=== PATIENT | male | born 1930 | race Caucasian/White ===

== ENCOUNTER 2016-06-23 00:24 | Inpatient (IN) | payer OTHER ==
[~2016-06-23] VITALS: Ht 170.2 cm; Wt 109.9 kg
[2016-06-23] VITALS (10 sets, daily range): BP systolic 133–161; BP diastolic 58–81
[~2016-06-23 00:24] MED LIST: Coumadin dosing per PO; FLAGYL500 MG PO; LOPRESSOR12.5 MG PO; Lotrel 5/40 PO; SENOKOT S,PE1 TABLET PO; Tylenol Regular Stre PO; Vicodin,Lortab 5/500 PO
[2016-06-23 01:56] LABS: HEMATOCRIT 29.4 % (38.0-50.0); MCH 25.9 PG (29.0-34.0); MCHC 30.3 G/DL (30.0-36.0); MCV 85.5 FL (86-99); MEAN PLAT.VOLUME 10.3 uM^3 (9.0-12.4); PLATELET COUNT 208 K/uL (156-360); RBC DIS.WIDTH-CV 17.4 % (11.8-14.6); RBC DIS.WIDTH-SD 53.1 % (39-53); RED BLOOD COUNT 3.44 M/uL (4.00-5.50); WHITE BLOOD COUNT 9.4 K/uL (4.1-10.2)
[2016-06-23 02:05] LABS: CHLORIDE 112 mEq/L (99-109); POTASSIUM 4.9 mEq/L (3.7-5.4); SODIUM 143 mEq/L (136-147)
[2016-06-23 02:07] LABS: GLUCOSE 114 mg/dL (70-99)
[2016-06-23 02:08] LABS: ANION GAP 11 MEQ/L (2-14)
[2016-06-23 02:09] LABS: TOTAL BILIRUBIN 0.3 mg/dL (0.0-1.0)
[2016-06-23 02:11] LABS: ALKALINE PHOSPHATASE 76 IU/L (3-129); GFR ESTIMATE (CALCULATED) 27 mL/min/
[2016-06-23 02:12] LABS: UREA NITROGEN (BUN) 45 mg/dL (9-23)
[2016-06-23 02:13] LABS: DIRECT BILIRUBIN 0.1 mg/dL (0.0-0.3)
[2016-06-23 02:14] LABS: LIPASE 12 U/L (1.0-51.0)
[2016-06-23 02:17] LABS: TROP-I INTERPRETATION INDETERMINATE; TROPONIN-I 0.44 ng/mL (0.0-0.30)
[2016-06-23 02:44] LABS: ADD MIUA? YES; BILIRUBIN NEGATIVE; BLOOD TRACE; COLOR YELLOW ((YELLOW)); GLUCOSE (STRIP) NEGATIVE; KETONES NEGATIVE; LEUKOCYTES NEGATIVE; NITRITE NEGATIVE; PH, URINE 5.5 (5-8); PROTEIN (STRIP) >=300; SPECIFIC GRAVITY 1.019 (1.000-1.030); UROBILINOGEN 0.2 MG/DL (0.2-1.0)
[2016-06-23 02:58] LABS: EPITHELIAL CELLS RARE; MUCUS NONE SEEN; RED BLOOD CELLS 0-5 /HPF (0-5)
[2016-06-23 02:59] LABS: BACTERIA RARE; CASTS NONE SEEN /LPF; CRYSTALS NONE SEEN; UCUL ADDED? NO
[2016-06-23] MEDS ORDERED: FUROSEMIDE40 MG PO (05:48)
[2016-06-23] MEDS ORDERED: AMLODIPINE BESYL5 MG PO (05:48)
[2016-06-23 06:46] LABS: TROP-I INTERPRETATION INDETERMINATE; TROPONIN-I 0.42 ng/mL (0.0-0.30)
[2016-06-23] MEDS ORDERED: LOW DOSE ASPIRI81 M1 PO (08:09)
[2016-06-23] MEDS ORDERED: TYLENOL ARTHRI650 MG PO (08:10)
[2016-06-23 12:25] LABS: HEMATOCRIT 30.3 % (38.0-50.0); MCV 86.3 FL (86-99)
[2016-06-23 13:07] LABS: BASE EXCESS -0.4 mEq/L (-3 to +3); BICARBONATE 25.8 mEq/L (22-26); CARBOXY HGB 1.3 % (0-5); PCO2 49 mm Hg (35-45); PO2 86 mm Hg (80-100); SITE LR; pH 7.33 (7.35-7.45)
[2016-06-23 13:08] LABS: COMMENTS - BLOOD GASES NAC+; DEVICE CANNULA; O2 FLOW 2 L/MIN
[2016-06-23 13:10] LABS: TROP-I INTERPRETATION INDETERMINATE; TROPONIN-I 0.35 ng/mL (0.0-0.30)
[2016-06-23 14:00] LABS: METH RESISTANT S AUREUS PCR NEGATIVE (NEGATIVE); PROBE CHECK PASS; SPECIMEN PROCESSING CONTROL PASS
[2016-06-23 18:54] LABS: TROP-I INTERPRETATION NEGATIVE; TROPONIN-I 0.26 ng/mL (0.0-0.30)
[2016-06-24] VITALS: BP 114/43
[2016-06-24 04:00] VITALS: BP 139/59
[2016-06-24 06:16] LABS: HEMATOCRIT 30.5 % (38.0-50.0); MCH 25.6 PG (29.0-34.0); MCHC 29.5 G/DL (30.0-36.0); MCV 86.6 FL (86-99); MEAN PLAT.VOLUME 11.1 uM^3 (9.0-12.4); PLATELET COUNT 224 K/uL (156-360); RBC DIS.WIDTH-CV 17.7 % (11.8-14.6); RBC DIS.WIDTH-SD 55.5 % (39-53); RED BLOOD COUNT 3.52 M/uL (4.00-5.50); WHITE BLOOD COUNT 11.1 K/uL (4.1-10.2)
[2016-06-24 06:45] LABS: ANION GAP 11 MEQ/L (2-14); CHLORIDE 105 MEQ/L (99-109); GFR ESTIMATE (CALCULATED) 23 mL/min/; GLUCOSE 111 mg/dL (70-99); SAMPLE HEMOLYSIS CHECK 0; SAMPLE ICTERIC CHECK 0; SAMPLE LIPEMIA CHECK 0; SODIUM 139 MEQ/L (136-147); UREA NITROGEN (BUN) 61 mg/dL (9-23)
[2016-06-24 08:00] VITALS: BP 143/60
[2016-06-24 12:00] VITALS: BP 103/57
[2016-06-24 13:11] LABS: ANION GAP 11 MEQ/L (2-14); CHLORIDE 105 MEQ/L (99-109); GFR ESTIMATE (CALCULATED) 23 mL/min/; GLUCOSE 100 mg/dL (70-99); POTASSIUM 5.8 MEQ/L (3.7-5.4); SAMPLE HEMOLYSIS CHECK 0; SAMPLE ICTERIC CHECK 0; SAMPLE LIPEMIA CHECK 0; SODIUM 139 MEQ/L (136-147); UREA NITROGEN (BUN) 64 mg/dL (9-23)
[2016-06-24 16:30] VITALS: BP 139/55
[2016-06-24 17:13] LABS: UR CREATININE CONCENTRATION 90.2 MG/DL
[2016-06-24 20:00] VITALS: BP 184/93
[2016-06-25] VITALS (10 sets, daily range): BP systolic 114–168; BP diastolic 47–83
[2016-06-25 06:30] LABS: HEMATOCRIT 31.2 % (38.0-50.0); MCH 25.6 PG (29.0-34.0); MCHC 29.8 G/DL (30.0-36.0); MEAN PLAT.VOLUME 10.8 uM^3 (9.0-12.4); PLATELET COUNT 226 K/uL (156-360); RBC DIS.WIDTH-CV 17.7 % (11.8-14.6); RBC DIS.WIDTH-SD 55.6 % (39-53); RED BLOOD COUNT 3.63 M/uL (4.00-5.50); WHITE BLOOD COUNT 12.1 K/uL (4.1-10.2)
[2016-06-25 06:55] LABS: ANION GAP 11 MEQ/L (2-14); CHLORIDE 104 MEQ/L (99-109); GFR ESTIMATE (CALCULATED) 22 mL/min/; GLUCOSE 105 mg/dL (70-99); POTASSIUM 5.5 MEQ/L (3.7-5.4); SAMPLE HEMOLYSIS CHECK 0; SAMPLE ICTERIC CHECK 0; SAMPLE LIPEMIA CHECK 0; SODIUM 139 MEQ/L (136-147); UREA NITROGEN (BUN) 75 mg/dL (9-23); URIC ACID 10.8 mg/dL (3.1-9.2)
[2016-06-25 08:48] LABS: ABS NEUTROPHIL COUNT 9.42; ANISOCYTOSIS 1+; EOSINOPHIL (%) 0 % (0-5); IMMATURE GRANULOCYTE (%) 5.4 % (0.0-0.7); IMMATURE GRANULOCYTE COUNT 0.7 K/uL; LYMPHOCYTE COUNT 0.7 K/uL (1.0-2.8); MACROCYTES OCC; MONOCYTE (%) 7.1 % (3-12); MONOCYTE COUNT 0.9 K/uL (0-0.8); NEUTROPHIL (%) 81.3 % (45-76); NEUTROPHIL COUNT 9.8 K/uL (1.8-6.4); OVALOCYTES OCC; PLAT.SUFFICIENCY ADEQUATE; USER ID SDF
[2016-06-26 03:15] VITALS: BP 155/77
[2016-06-26 06:05] LABS: HEMATOCRIT 31.4 % (38.0-50.0); MCH 25.8 PG (29.0-34.0); MCHC 30.3 G/DL (30.0-36.0); MCV 85.3 FL (86-99); MEAN PLAT.VOLUME 10.4 uM^3 (9.0-12.4); PLATELET COUNT 209 K/uL (156-360); RBC DIS.WIDTH-CV 17.8 % (11.8-14.6); RBC DIS.WIDTH-SD 55.5 % (39-53); RED BLOOD COUNT 3.68 M/uL (4.00-5.50); WHITE BLOOD COUNT 9.2 K/uL (4.1-10.2)
[2016-06-26 06:47] LABS: ANION GAP 10 MEQ/L (2-14); CHLORIDE 108 MEQ/L (99-109); GFR ESTIMATE (CALCULATED) 25 mL/min/; GLUCOSE 93 mg/dL (70-99); POTASSIUM 4.6 MEQ/L (3.7-5.4); SAMPLE HEMOLYSIS CHECK 0; SAMPLE ICTERIC CHECK 0; SAMPLE LIPEMIA CHECK 0; SODIUM 143 MEQ/L (136-147); UREA NITROGEN (BUN) 74 mg/dL (9-23)
[2016-06-26 07:18] LABS: ABS NEUTROPHIL COUNT 6.33; ANISOCYTOSIS 1+; BASOPHIL COUNT 0.1 K/uL (0-0.1); EOSINOPHIL (%) 2.5 % (0-5); EOSINOPHIL ABS CT 0.18; EOSINOPHIL COUNT 0.2 K/uL (0-0.3); IMMATURE GRANULOCYTE (%) 9.4 % (0.0-0.7); IMMATURE GRANULOCYTE COUNT 0.9 K/uL; MACROCYTES OCC; MONOCYTE (%) 9.1 % (3-12); MONOCYTE COUNT 0.8 K/uL (0-0.8); NEUTROPHIL COUNT 6.2 K/uL (1.8-6.4); OVALOCYTES OCC; PLAT.SUFFICIENCY ADEQUATE; POLYCHROMASIA OCC; USER ID SDF
[2016-06-26 09:35] VITALS: BP 182/89
[2016-06-26 12:48] VITALS: BP 122/77
[2016-06-26 15:34] VITALS: BP 200/80
[2016-06-26 20:00] VITALS: BP 162/72
[2016-06-26 23:55] VITALS: BP 163/69
[2016-06-27] VITALS (8 sets, daily range): BP systolic 140–196; BP diastolic 64–82
[2016-06-27 12:04] LABS: MCH 25.9 PG (29.0-34.0); MCHC 30.3 G/DL (30.0-36.0); MCV 85.4 FL (86-99); MEAN PLAT.VOLUME 10.7 uM^3 (9.0-12.4); PLATELET COUNT 216 K/uL (156-360); RBC DIS.WIDTH-CV 17.9 % (11.8-14.6); RBC DIS.WIDTH-SD 55.5 % (39-53); RED BLOOD COUNT 3.63 M/uL (4.00-5.50); WHITE BLOOD COUNT 9.1 K/uL (4.1-10.2)
[2016-06-27 12:27] LABS: ALKALINE PHOSPHATASE 68 IU/L (3-129); ANION GAP 9 MEQ/L (2-14); CHLORIDE 109 MEQ/L (99-109); GLUCOSE 107 mg/dL (70-99); SAMPLE HEMOLYSIS CHECK 0; SAMPLE ICTERIC CHECK 0; SAMPLE LIPEMIA CHECK 0; SODIUM 146 MEQ/L (136-147); TOTAL BILIRUBIN 0.3 MG/DL (0.0-1.0); UREA NITROGEN (BUN) 59 mg/dL (9-23)
[2016-06-27 12:28] LABS: GFR ESTIMATE (CALCULATED) 32 mL/min/; POTASSIUM 3.6 MEQ/L (3.7-5.4)
[2016-06-28 04:53] VITALS: BP 138/66
[2016-06-28 07:14] VITALS: BP 142/65
[2016-06-28 07:20] LABS: ANION GAP 9 MEQ/L (2-14); CHLORIDE 109 MEQ/L (99-109); GFR ESTIMATE (CALCULATED) 32 mL/min/; GLUCOSE 94 mg/dL (70-99); POTASSIUM 3.6 MEQ/L (3.7-5.4); SAMPLE HEMOLYSIS CHECK 0; SAMPLE ICTERIC CHECK 0; SAMPLE LIPEMIA CHECK 0; SODIUM 147 MEQ/L (136-147); UREA NITROGEN (BUN) 51 mg/dL (9-23)
[2016-06-28] MEDS ORDERED: ATORVASTATIN CA40 MG PO (10:49)
[2016-06-28] MEDS ORDERED: NIFEDIPINE ER30 MG PO (10:50)
[2016-06-28] MEDS ORDERED: FUROSEMIDE20 MG PO (10:51)
[2016-06-28] MEDS ORDERED: LOPRESSOR25 MG PO (10:51)
[2016-06-28] MEDS ORDERED: ALLOPURINOL100 MG PO (10:51)
[2016-06-28] MEDS ORDERED: K-TAB ER8 MEQ PO (10:52)
== END 2016-06-28 12:57 | disposition home health service (06) | DRG 291 ==
LOC: EME → EDBD 00:24 → 4EAST 05:47 → 4WEST 05:47 → EDOF 05:47 → 4WEST 11:02 → 4EAST 06-25 20:07
PROVIDERS: Emergency Medicine; Hospitalist; Internal Medicine Critical Care Medicine; Internal Medicine Nephrology; Physician Assistant Medical
DX: I13.0 Hypertensive heart and chronic kidney disease with heart failure and stage 1 through stage 4 chronic kidney disease, or unspecified chronic kidney disease (principal); J96.02 Acute respiratory failure with hypercapnia; J96.01 Acute respiratory failure with hypoxia; I50.31 Acute diastolic (congestive) heart failure; J44.1 Chronic obstructive pulmonary disease with (acute) exacerbation; N17.9 Acute kidney failure, unspecified; N18.4 Chronic kidney disease, stage 4 (severe); Q61.3 Polycystic kidney, unspecified; E87.2 Acidosis; Z96.653 Presence of artificial knee joint, bilateral; Z96.642 Presence of left artificial hip joint; Z99.81 Dependence on supplemental oxygen; I27.2 Other secondary pulmonary hypertension; G47.33 Obstructive sleep apnea (adult) (pediatric); F03.90 Unspecified dementia, unspecified severity, without behavioral disturbance, psychotic disturbance, mood disturbance, and anxiety; I25.10 Atherosclerotic heart disease of native coronary artery without angina pectoris; Z87.891 Personal history of nicotine dependence; I08.1 Rheumatic disorders of both mitral and tricuspid valves; E87.5 Hyperkalemia; N43.3 Hydrocele, unspecified; E66.01 Morbid (severe) obesity due to excess calories; N40.0 Benign prostatic hyperplasia without lower urinary tract symptoms; D63.1 Anemia in chronic kidney disease; D50.9 Iron deficiency anemia, unspecified; R74.8 Abnormal levels of other serum enzymes
CPT/HCPCS: 36600; 71010; 76770; 80048; 80048 91; 80053; 80076; 81003; 82272; 82570; 82803; 83690; 83880; 84156; 84484; 84550; 85014; 85018; 85025; 85027; 86038; 86850; 86900; 86901; 87641; 93005; 93306; 93971; 94640; 94640 76; 94760; 94799; 97530 GO; 97530 GP; 99202; 99281; 99285; J1650; J1940; J2405; J2930; J7644

== ENCOUNTER 2016-07-15 19:08 | Inpatient (IN) | payer OTHER ==
[~2016-07-15] VITALS: Ht 172.7 cm; Wt 100.0 kg
[~2016-07-15 19:08] MED LIST changes: +ALLOPURINOL100 MG PO; +AMLODIPINE BESYL5 MG PO; +ATORVASTATIN CA40 MG PO; +FUROSEMIDE20 MG PO; +FUROSEMIDE40 MG PO; +K-TAB ER8 MEQ PO; +LOPRESSOR25 MG PO; +LOW DOSE ASPIRI81 M1 PO; +NIFEDIPINE ER30 MG PO; +TYLENOL ARTHRI650 MG PO
[2016-07-15 20:24] LABS: ADD MIUA? YES; BILIRUBIN NEGATIVE; BLOOD TRACE; COLOR YELLOW ((YELLOW)); GLUCOSE (STRIP) NEGATIVE; KETONES NEGATIVE; LEUKOCYTES TRACE; NITRITE NEGATIVE; PROTEIN (STRIP) 30; SPECIFIC GRAVITY 1.014 (1.000-1.030); UROBILINOGEN 0.2 MG/DL (0.2-1.0)
[2016-07-15 20:37] LABS: HEMATOCRIT 26.7 % (38.0-50.0); MCH 25.5 PG (29.0-34.0); MCHC 30.3 G/DL (30.0-36.0); MEAN PLAT.VOLUME 10.2 uM^3 (9.0-12.4); PLATELET COUNT 250 K/uL (156-360); RBC DIS.WIDTH-CV 17.4 % (11.8-14.6); RBC DIS.WIDTH-SD 52.1 % (39-53); RED BLOOD COUNT 3.18 M/uL (4.00-5.50); WHITE BLOOD COUNT 8.1 K/uL (4.1-10.2)
[2016-07-15 20:46] LABS: D-DIMER ELISA 0.95 mg/L FEU (< 0.57)
[2016-07-15 20:49] LABS: EPITHELIAL CELLS NONE SEEN; RED BLOOD CELLS 0-5 /HPF (0-5); WHITE BLOOD CELLS 0-5 /HPF (0-5)
[2016-07-15 20:50] LABS: BACTERIA NONE SEEN; CASTS NONE SEEN /LPF; CRYSTALS NONE SEEN; MUCUS NONE SEEN; UCUL ADDED? NO
[2016-07-15 20:55] LABS: CHLORIDE 105 mEq/L (99-109); POTASSIUM 4.9 mEq/L (3.7-5.4); SODIUM 141 mEq/L (136-147)
[2016-07-15 20:56] LABS: TROP-I INTERPRETATION NEGATIVE; TROPONIN-I 0.04 ng/mL (0.0-0.30)
[2016-07-15 20:57] LABS: GLUCOSE 98 mg/dL (70-99)
[2016-07-15 20:58] LABS: ANION GAP 13 MEQ/L (2-14)
[2016-07-15 20:59] LABS: TOTAL BILIRUBIN 0.2 mg/dL (0.0-1.0)
[2016-07-15 21:01] LABS: ALKALINE PHOSPHATASE 88 IU/L (3-129); GFR ESTIMATE (CALCULATED) 22 mL/min/
[2016-07-15 21:02] LABS: UREA NITROGEN (BUN) 65 mg/dL (9-23)
[2016-07-15 21:25] LABS: BASOPHIL COUNT 0.1 K/uL (0-0.1); EOSINOPHIL (%) 6.2 % (0-5); EOSINOPHIL COUNT 0.5 K/uL (0-0.3); HEMATOLOGY COMMENT 1 SMEAR COMPATIBLE; IMMATURE GRANULOCYTE (%) 3.9 % (0.0-0.7); IMMATURE GRANULOCYTE COUNT 3.1 K/uL; LYMPHOCYTE COUNT 1.2 K/uL (1.0-2.8); MONOCYTE (%) 8.3 % (3-12); MONOCYTE COUNT 0.7 K/uL (0-0.8); NEUTROPHIL (%) 65.5 % (45-76); NEUTROPHIL COUNT 5.3 K/uL (1.8-6.4); PLAT.SUFFICIENCY ADEQUATE; USER ID NPD
[2016-07-16 00:48] LABS: BICARBONATE 29.9 mEq/L (22-26); CARBOXY HGB 1.6 % (0-5); METHEMOGLOBIN 0.7 % (0-1.5); PCO2 45 mm Hg (35-45)
[2016-07-16 00:49] LABS: COMMENTS - BLOOD GASES C+A+; DEVICE ROOM AIR; PO2 51 mm Hg (80-100); SITE LR; pH 7.43 (7.35-7.45)
[2016-07-16 01:15] VITALS: BP 160/72
[2016-07-16 04:00] VITALS: BP 145/66
[2016-07-16 08:35] VITALS: BP 155/67
[2016-07-16 10:26] LABS: HEMATOCRIT 27.7 % (38.0-50.0); MCH 25.5 PG (29.0-34.0); MCV 85.2 FL (86-99); MEAN PLAT.VOLUME 10.8 uM^3 (9.0-12.4); PLATELET COUNT 257 K/uL (156-360); RBC DIS.WIDTH-CV 17.7 % (11.8-14.6); RBC DIS.WIDTH-SD 55.5 % (39-53); RED BLOOD COUNT 3.25 M/uL (4.00-5.50); WHITE BLOOD COUNT 6.5 K/uL (4.1-10.2)
[2016-07-16 10:53] LABS: ANION GAP 11 MEQ/L (2-14); CHLORIDE 104 MEQ/L (99-109); GFR ESTIMATE (CALCULATED) 24 mL/min/; GLUCOSE 126 mg/dL (70-99); POTASSIUM 4.6 MEQ/L (3.7-5.4); SAMPLE HEMOLYSIS CHECK 0; SAMPLE ICTERIC CHECK 0; SAMPLE LIPEMIA CHECK 0; SODIUM 142 MEQ/L (136-147); TROP-I INTERPRETATION NEGATIVE; TROPONIN-I 0.04 ng/mL (0.0-0.30); UREA NITROGEN (BUN) 57 mg/dL (9-23)
[2016-07-16 11:58] VITALS: BP 141/66
[2016-07-16 14:33] LABS: TROP-I INTERPRETATION NEGATIVE; TROPONIN-I 0.05 ng/mL (0.0-0.30)
[2016-07-16 16:03] VITALS: BP 130/59
[2016-07-16 19:26] LABS: TROP-I INTERPRETATION NEGATIVE; TROPONIN-I 0.05 ng/mL (0.0-0.30)
[2016-07-16 20:00] VITALS: BP 146/67
[2016-07-16 22:18] LABS: TROP-I INTERPRETATION NEGATIVE; TROPONIN-I 0.03 ng/mL (0.0-0.30)
[2016-07-17 01:00] VITALS: BP 146/67
[2016-07-17 08:21] VITALS: BP 151/68
[2016-07-17 09:18] LABS: HEMATOCRIT 29.7 % (38.0-50.0); MCH 25.7 PG (29.0-34.0); MCHC 30.6 G/DL (30.0-36.0); MCV 83.9 FL (86-99); MEAN PLAT.VOLUME 11.2 uM^3 (9.0-12.4); PLATELET COUNT 292 K/uL (156-360); RBC DIS.WIDTH-CV 17.4 % (11.8-14.6); RBC DIS.WIDTH-SD 54.1 % (39-53); RED BLOOD COUNT 3.54 M/uL (4.00-5.50)
[2016-07-17 09:46] LABS: ANION GAP 11 MEQ/L (2-14); CHLORIDE 103 MEQ/L (99-109); GFR ESTIMATE (CALCULATED) 27 mL/min/; GLUCOSE 98 mg/dL (70-99); POTASSIUM 4.3 MEQ/L (3.7-5.4); SAMPLE HEMOLYSIS CHECK 0; SAMPLE ICTERIC CHECK 0; SAMPLE LIPEMIA CHECK 0; SODIUM 141 MEQ/L (136-147); UREA NITROGEN (BUN) 56 mg/dL (9-23)
[2016-07-17 12:11] VITALS: BP 148/68
[2016-07-17 16:01] VITALS: BP 150/70
[2016-07-17 18:45] VITALS: BP 171/72
[2016-07-17 22:57] VITALS: BP 140/64
[2016-07-18 04:11] VITALS: BP 166/80
[2016-07-18 07:24] VITALS: BP 151/76
[2016-07-18 11:57] VITALS: BP 142/60
[2016-07-18 15:33] VITALS: BP 163/60
[2016-07-18 19:07] VITALS: BP 144/67
[2016-07-19 01:00] VITALS: BP 135/62
[2016-07-19 04:33] VITALS: BP 151/55
[2016-07-19 06:43] LABS: HEMATOCRIT 30.8 % (38.0-50.0); MCH 25.2 PG (29.0-34.0); MCHC 30.2 G/DL (30.0-36.0); MCV 83.5 FL (86-99); MEAN PLAT.VOLUME 10.4 uM^3 (9.0-12.4); PLATELET COUNT 298 K/uL (156-360); RBC DIS.WIDTH-CV 17.5 % (11.8-14.6); RBC DIS.WIDTH-SD 53.8 % (39-53); RED BLOOD COUNT 3.69 M/uL (4.00-5.50); WHITE BLOOD COUNT 9.3 K/uL (4.1-10.2)
[2016-07-19 06:57] LABS: ANION GAP 11 MEQ/L (2-14); CHLORIDE 107 MEQ/L (99-109); POTASSIUM 4.4 MEQ/L (3.7-5.4); SAMPLE HEMOLYSIS CHECK 0; SAMPLE ICTERIC CHECK 0; SAMPLE LIPEMIA CHECK 0; SODIUM 143 MEQ/L (136-147)
[2016-07-19 07:02] LABS: GFR ESTIMATE (CALCULATED) 26 mL/min/; GLUCOSE 87 mg/dL (70-99); UREA NITROGEN (BUN) 48 mg/dL (9-23)
[2016-07-19 07:15] LABS: ABS NEUTROPHIL COUNT 6.02; ANISOCYTOSIS 1+; BASOPHIL COUNT 0.1 K/uL (0-0.1); EOSINOPHIL (%) 7.9 % (0-5); EOSINOPHIL ABS CT 0.74; EOSINOPHIL COUNT 0.7 K/uL (0-0.3); IMMATURE GRANULOCYTE (%) 6.8 % (0.0-0.7); IMMATURE GRANULOCYTE COUNT 0.6 K/uL; LYMPHOCYTE COUNT 1.6 K/uL (1.0-2.8); MACROCYTES OCC; MONOCYTE (%) 8.2 % (3-12); MONOCYTE COUNT 0.8 K/uL (0-0.8); NEUTROPHIL (%) 58.9 % (45-76); NEUTROPHIL COUNT 5.5 K/uL (1.8-6.4); OVALOCYTES OCC; PLAT.SUFFICIENCY ADEQUATE; SPHEROCYTES OCC; USER ID SDF
[2016-07-19 07:30] VITALS: BP 164/68
[2016-07-19] MEDS ORDERED: SPIRIVA RESPIMAT4 GM IH (12:04)
[2016-07-19] MEDS ORDERED: VENTOLIN HFA18 GM IH (12:04)
[2016-07-19 12:05] VITALS: BP 133/66
== END 2016-07-19 15:29 | disposition home health service (06) | DRG 291 ==
LOC: EME → EDBD 19:08 → EME 19:08 → EDOF 23:33 → 5WEST 07-16 00:52 → 4EAST 07-17 10:38 → 5WEST 07-17 10:38 → 4EAST 07-17 18:03
PROVIDERS: Emergency Medicine; Hospitalist; Internal Medicine; Physician Assistant Medical
DX: I50.31 Acute diastolic (congestive) heart failure (principal); J96.01 Acute respiratory failure with hypoxia; I42.9 Cardiomyopathy, unspecified; N18.4 Chronic kidney disease, stage 4 (severe); Z66 Do not resuscitate; Z51.5 Encounter for palliative care; J44.9 Chronic obstructive pulmonary disease, unspecified; I27.2 Other secondary pulmonary hypertension; D63.1 Anemia in chronic kidney disease; S80.02XA Contusion of left knee, initial encounter; I12.9 Hypertensive chronic kidney disease with stage 1 through stage 4 chronic kidney disease, or unspecified chronic kidney disease; I36.1 Nonrheumatic tricuspid (valve) insufficiency; I34.0 Nonrheumatic mitral (valve) insufficiency; G47.33 Obstructive sleep apnea (adult) (pediatric); I35.1 Nonrheumatic aortic (valve) insufficiency; F03.90 Unspecified dementia, unspecified severity, without behavioral disturbance, psychotic disturbance, mood disturbance, and anxiety; E66.9 Obesity, unspecified; Z68.34 Body mass index [BMI] 34.0-34.9, adult; Z91.19 Patient's noncompliance with other medical treatment and regimen; Z79.82 Long term (current) use of aspirin; Z87.891 Personal history of nicotine dependence; Z82.49 Family history of ischemic heart disease and other diseases of the circulatory system; Z83.3 Family history of diabetes mellitus
CPT/HCPCS: 36600; 71010; 78582; 80048; 80053; 81003; 82803; 83880; 84484; 85025; 85027; 85379; 93005; 94640 76; 94799; 99202; 99281; 99285; A9539; A9540; G0378; G8978 GP CI; G8979 GP CH; J1644; J1940

== ENCOUNTER 2017-12-13 22:02 | Emergency (ER) | payer OTHER ==
[~2017-12-13] VITALS: Ht 172.7 cm; Wt 108.6 kg
[~2017-12-13 22:02] MED LIST changes: +SPIRIVA RESPIMAT4 GM IH; +VENTOLIN HFA18 GM IH
[2017-12-13 23:38] LABS: HEMATOCRIT 30.5 % (38.0-50.0); HEMOGLOBIN 9.8 G/DL (12.5-16.6); MCH 28.9 PG (29.0-34.0); MCHC 32.1 G/DL (30.0-36.0); PLATELET COUNT 193 K/uL (156-360); RBC DIS.WIDTH-CV 17.6 % (11.8-14.6); RED BLOOD COUNT 3.39 M/uL (4.00-5.50); WHITE BLOOD COUNT 9.2 K/uL (4.1-10.2)
[2017-12-13 23:50] LABS: CHLORIDE 105 mEq/L (99-109); SODIUM 139 mEq/L (136-147)
[2017-12-13 23:51] LABS: GLUCOSE 103 mg/dL (70-99)
[2017-12-13 23:55] LABS: CREATININE 2.6 mg/dL (0.6-1.3); GFR ESTIMATE (CALCULATED) 25 mL/min/ (58.99-99999)
[2017-12-13 23:56] LABS: UREA NITROGEN (BUN) 63 mg/dL (9-23)
[2017-12-14 00:03] LABS: TROP-I INTERPRETATION NEGATIVE; TROPONIN-I 0.04 ng/mL (0.0-0.30)
[2017-12-14] MEDS ORDERED: MEDROL DOSEPAK4 MG PO (02:08)
[2017-12-14] MEDS ORDERED: ULTRAM50 MG PO (02:08)
[2017-12-14 02:19] LABS: TROP-I INTERPRETATION NEGATIVE; TROPONIN-I 0.04 ng/mL (0.0-0.30)
[2017-12-14 02:45] VITALS: BP 162/82
[2017-12-14] MEDS ORDERED: FLEXERIL10 MG PO (13:14)
== END 2017-12-14 02:50 | disposition home or self-care (01) ==
LOC: EME 22:02
PROVIDERS: Physician Assistant Medical
DX: M25.512 Pain in left shoulder (principal); R51 Headache; M54.2 Cervicalgia; Z91.81 History of falling; I44.30 Unspecified atrioventricular block; M19.012 Primary osteoarthritis, left shoulder; I12.9 Hypertensive chronic kidney disease with stage 1 through stage 4 chronic kidney disease, or unspecified chronic kidney disease; N18.9 Chronic kidney disease, unspecified; Z87.442 Personal history of urinary calculi; Z79.82 Long term (current) use of aspirin; Z87.891 Personal history of nicotine dependence
CPT/HCPCS: 70450; 72125; 73030; 80048; 84484; 85027; 93005; 99281; 99284

== ENCOUNTER 2017-12-14 12:08 | Emergency (ER) | payer OTHER ==
[~2017-12-14] VITALS: Ht 172.7 cm; Wt 108.8 kg
[~2017-12-14 12:08] MED LIST changes: +MEDROL DOSEPAK4 MG PO; +ULTRAM50 MG PO
[2017-12-14] MEDS ORDERED: FLEXERIL10 MG PO (13:14)
[2017-12-14 14:43] VITALS: BP 178/64
== END 2017-12-14 14:47 | disposition home or self-care (01) ==
LOC: EME 12:08
DX: S16.1XXA Strain of muscle, fascia and tendon at neck level, initial encounter (principal); R51 Headache; W28.XXXA Contact with powered lawn mower, initial encounter; N18.9 Chronic kidney disease, unspecified; Z87.442 Personal history of urinary calculi; Z96.653 Presence of artificial knee joint, bilateral; Z96.643 Presence of artificial hip joint, bilateral; Z87.891 Personal history of nicotine dependence
CPT/HCPCS: 99281; 99285; J1885; J2060

== ENCOUNTER 2017-12-16 15:03 | Inpatient (IN) | payer OTHER ==
[~2017-12-16] VITALS: Ht 172.7 cm; Wt 110.9 kg
[~2017-12-16 15:03] MED LIST changes: +FLEXERIL10 MG PO
[2017-12-16 19:05] LABS: HEMATOCRIT 29.8 % (38.0-50.0); HEMOGLOBIN 9.4 G/DL (12.5-16.6); MCH 28.7 PG (29.0-34.0); MCHC 31.5 G/DL (30.0-36.0); MCV 90.9 FL (86-99); PLATELET COUNT 189 K/uL (156-360); RBC DIS.WIDTH-CV 17.3 % (11.8-14.6); RBC DIS.WIDTH-SD 58.1 % (39-53); RED BLOOD COUNT 3.28 M/uL (4.00-5.50); WHITE BLOOD COUNT 9.5 K/uL (4.1-10.2)
[2017-12-16 19:17] LABS: CHLORIDE 105 mEq/L (99-109); POTASSIUM 5.8 mEq/L (3.7-5.4); SODIUM 140 mEq/L (136-147)
[2017-12-16 19:19] LABS: GLUCOSE 114 mg/dL (70-99)
[2017-12-16 19:23] LABS: CREATININE 2.7 mg/dL (0.6-1.3); GFR ESTIMATE (CALCULATED) 24 mL/min/ (58.99-99999)
[2017-12-16 19:24] LABS: UREA NITROGEN (BUN) 72 mg/dL (9-23)
[2017-12-16 19:26] LABS: TROP-I INTERPRETATION NEGATIVE; TROPONIN-I 0.02 ng/mL (0.0-0.30)
[2017-12-16 19:45] LABS: ABS NEUTROPHIL COUNT 8.8; ANISOCYTOSIS 1+; BAND NEUTROPHILS 4.4 % (0-8.0); EOSINOPHIL ABS CT 0; LYMPHOCYTES 5.2 % (15.0-45.0); MONOCYTES 2.6 % (0-9.0); PLAT.SUFFICIENCY ADEQUATE; POIKILOCYTOSIS 1+; SEG.NEUTROPHILS 87.8 % (46.0-76.0)
[2017-12-16] MEDS ORDERED: ZYLOPRIM100 MG PO (20:11)
[2017-12-16] MEDS ORDERED: LIPITOR40 MG PO (20:12)
[2017-12-16] MEDS ORDERED: LASIX40 MG PO (20:13)
[2017-12-16] MEDS ORDERED: METHYLPREDNISOLO4 M1 PO (20:14)
[2017-12-16] MEDS ORDERED: PROCARDIA XL30 MG PO (20:14)
[2017-12-16] MEDS ORDERED: PROZAC40 MG PO (20:15)
[2017-12-16 23:56] VITALS: BP 183/78
[2017-12-17 00:14] VITALS: BP 180/76
[2017-12-17 01:35] LABS: APPEARANCE CLEAR ((CLEAR)); BILIRUBIN NEGATIVE; BLOOD NEGATIVE; COLOR YELLOW ((YELLOW)); GLUCOSE (STRIP) NEGATIVE; KETONES NEGATIVE; LEUKOCYTES NEGATIVE; NITRITE NEGATIVE; PROTEIN (STRIP) 30; SPECIFIC GRAVITY 1.012 (1.000-1.030); UROBILINOGEN 0.2 MG/DL (0.2-1.0)
[2017-12-17 04:08] VITALS: BP 181/79
[2017-12-17 06:05] LABS: HEMATOCRIT 28.1 % (38.0-50.0); HEMOGLOBIN 8.7 G/DL (12.5-16.6); MCH 28.2 PG (29.0-34.0); MCV 90.9 FL (86-99); PLATELET COUNT 196 K/uL (156-360); RBC DIS.WIDTH-CV 17.3 % (11.8-14.6); RBC DIS.WIDTH-SD 58.2 % (39-53); RED BLOOD COUNT 3.09 M/uL (4.00-5.50); WHITE BLOOD COUNT 9.9 K/uL (4.1-10.2)
[2017-12-17 06:22] LABS: TROP-I INTERPRETATION NEGATIVE; TROPONIN-I 0.02 ng/mL (0.0-0.30)
[2017-12-17 06:25] LABS: CHLORIDE 108 MEQ/L (99-109); CREATININE 2.4 MG/DL (0.6-1.3); GFR ESTIMATE (CALCULATED) 27 mL/min/ (58.99-99999); GLUCOSE 99 mg/dL (70-99); POTASSIUM 5.1 MEQ/L (3.7-5.4); SODIUM 142 MEQ/L (136-147); UREA NITROGEN (BUN) 68 mg/dL (9-23)
[2017-12-17 07:19] LABS: THYROTROPIN (TSH) 1.1 MIU/L (0.4-5.5)
[2017-12-17 07:54] VITALS: BP 179/74
[2017-12-17 12:19] VITALS: BP 160/72
[2017-12-17 16:38] VITALS: BP 161/63
[2017-12-18] VITALS (7 sets, daily range): BP systolic 165–195; BP diastolic 71–90
[2017-12-18 05:55] LABS: HEMATOCRIT 28.7 % (38.0-50.0); MCH 28.1 PG (29.0-34.0); MCHC 31.4 G/DL (30.0-36.0); MCV 89.7 FL (86-99); PLATELET COUNT 234 K/uL (156-360); RBC DIS.WIDTH-CV 17.2 % (11.8-14.6); RBC DIS.WIDTH-SD 56.1 % (39-53); WHITE BLOOD COUNT 12.2 K/uL (4.1-10.2)
[2017-12-18 06:41] LABS: CHLORIDE 107 MEQ/L (99-109); CREATININE 2.1 MG/DL (0.6-1.3); GFR ESTIMATE (CALCULATED) 32 mL/min/ (58.99-99999); GLUCOSE 126 mg/dL (70-99); POTASSIUM 5.2 MEQ/L (3.7-5.4); SODIUM 141 MEQ/L (136-147); UREA NITROGEN (BUN) 64 mg/dL (9-23)
[2017-12-18 07:32] LABS: ABS NEUTROPHIL COUNT 11.1; ANISOCYTOSIS 1+; BAND NEUTROPHILS 2.6 % (0-8.0); BURR CELLS 2+; EOSINOPHIL ABS CT 0; LYMPHOCYTES 4.4 % (15.0-45.0); METAMYELOCYTES 0.9 %; MONOCYTES 0.9 % (0-9.0); MYELOCYTES 2.6 %; PLAT.SUFFICIENCY ADEQUATE; POIKILOCYTOSIS 3+; SEG.NEUTROPHILS 88.6 % (46.0-76.0)
[2017-12-19 06:04] LABS: HEMATOCRIT 31.1 % (38.0-50.0); HEMOGLOBIN 9.6 G/DL (12.5-16.6); MCH 27.7 PG (29.0-34.0); MCHC 30.9 G/DL (30.0-36.0); MCV 89.6 FL (86-99); PLATELET COUNT 269 K/uL (156-360); RBC DIS.WIDTH-CV 17.2 % (11.8-14.6); RBC DIS.WIDTH-SD 56.1 % (39-53); RED BLOOD COUNT 3.47 M/uL (4.00-5.50); WHITE BLOOD COUNT 16.6 K/uL (4.1-10.2)
[2017-12-19 06:29] LABS: CHLORIDE 106 MEQ/L (99-109); CREATININE 2.3 MG/DL (0.6-1.3); GFR ESTIMATE (CALCULATED) 29 mL/min/ (58.99-99999); GLUCOSE 127 mg/dL (70-99); POTASSIUM 4.8 MEQ/L (3.7-5.4); SODIUM 142 MEQ/L (136-147); UREA NITROGEN (BUN) 67 mg/dL (9-23)
[2017-12-19 06:33] LABS: ANISOCYTOSIS 1+; BAND NEUTROPHILS 1.7 % (0-8.0); EOSINOPHIL ABS CT 0; LYMPHOCYTES 0.9 % (15.0-45.0); MACROCYTES 1+; METAMYELOCYTES 0.9 %; MICROCYTOSIS 1+; MYELOCYTES 1.8 %; SEG.NEUTROPHILS 94.7 % (46.0-76.0)
[2017-12-19 08:34] VITALS: BP 187/77
[2017-12-19 15:55] VITALS: BP 145/60
[2017-12-20] VITALS: BP 170/83
[2017-12-20 08:57] VITALS: BP 155/71
[2017-12-20] MEDS ORDERED: PREDNISONE10 MG PO (10:10)
== END 2017-12-20 16:11 | disposition home health service (06) | DRG 193 ==
LOC: EME 15:03 → 5SOUTH 21:29 → EDOF 21:29 → ENRESERV 21:31 → 5SOUTH 22:49
PROVIDERS: Emergency Medicine; Hospitalist; Internal Medicine
DX: J18.9 Pneumonia, unspecified organism (principal); J44.0 Chronic obstructive pulmonary disease with (acute) lower respiratory infection; J44.1 Chronic obstructive pulmonary disease with (acute) exacerbation; J96.01 Acute respiratory failure with hypoxia; E87.5 Hyperkalemia; R29.6 Repeated falls; I13.0 Hypertensive heart and chronic kidney disease with heart failure and stage 1 through stage 4 chronic kidney disease, or unspecified chronic kidney disease; I50.32 Chronic diastolic (congestive) heart failure; N18.4 Chronic kidney disease, stage 4 (severe); E86.0 Dehydration; M54.2 Cervicalgia; I27.20 Pulmonary hypertension, unspecified; D64.9 Anemia, unspecified; F03.90 Unspecified dementia, unspecified severity, without behavioral disturbance, psychotic disturbance, mood disturbance, and anxiety; G47.33 Obstructive sleep apnea (adult) (pediatric); I38 Endocarditis, valve unspecified; G93.89 Other specified disorders of brain; M47.812 Spondylosis without myelopathy or radiculopathy, cervical region; H91.90 Unspecified hearing loss, unspecified ear; E66.9 Obesity, unspecified; Z68.37 Body mass index [BMI] 37.0-37.9, adult; Z79.82 Long term (current) use of aspirin; Z91.19 Patient's noncompliance with other medical treatment and regimen; Z87.891 Personal history of nicotine dependence; Z96.643 Presence of artificial hip joint, bilateral; Z96.653 Presence of artificial knee joint, bilateral
CPT/HCPCS: 70450; 71045; 72125; 73030; 80048; 81003; 82306; 82607; 83605; 84443; 84484; 85025; 85027; 87040; 93005; 94010; 94640; 94640 76; 94760; 94799; 97530 GO; 99281; 99284; 99285; J0360; J0456; J0696; J1644; J1885; J2060; J2920; J3420; J7512